=== PATIENT | male | born 1940 | race Hispanic/Latino ===

== ENCOUNTER 2017-04-22 03:00 | Outpatient (CLI) | payer MEDICARE, MEDICAID | END 2017-04-22 03:01 | disposition home or self-care (01) | LOC: BICRAD 03:00 | PROVIDERS: ATTEND Internal Medicine Infectious Disease | DX: L97.519 Non-pressure chronic ulcer of other part of right foot with unspecified severity (principal); L03.031 Cellulitis of right toe; M86.8X6 Other osteomyelitis, lower leg ==

== ENCOUNTER 2019-11-22 10:30 | Inpatient (IN) | payer MEDICARE, MEDICAID ==
[2019-11-22 12:11] VITALS: BMI 25.0
[2019-11-28] MEDS ORDERED: Midazolam HCl 2 mg/2 ml Vial ONE ×2 (06:34→06:36)
[2019-11-28] MEDS ORDERED: Fentanyl 100 MCG/2 ML VIAL ONE ×2 (06:34→06:36)
[2019-11-28] MEDS ORDERED: Lidocaine 1% (PF) 30 ML VIAL ONE (06:36)
[2019-11-28] MEDS ORDERED: Bupivacaine PF 0.5% 30 ML VIAL ONE (06:41)
[2019-11-28] MEDS ORDERED: EPINEPHrine 1 MG/ML AMP ONE (06:41)
[2019-11-28] MEDS ORDERED: Piperacillin/Tazobactam 3.375 GM VIAL ONE (07:02)
[2019-11-28] MEDS ORDERED: Sodium Chloride 0.9% 100 ML ONE (07:03)
[2019-11-28] MEDS ORDERED: Ondansetron HCl/PF 4 MG/2 ML Vial IVP PRN (08:44)
[2019-11-28] MEDS ORDERED: traMADol HCl 50 MG TAB PO PRN ×2 (08:49→10:51)
[2019-11-28] MEDS ORDERED: Ondansetron ODT 4 MG TAB PO PRN (08:49)
[2019-11-28] MEDS ORDERED: Levothyroxine 150 MCG TAB PO SCH (09:00)
[2019-11-28] MEDS ORDERED: hydrALAZINE 10 MG TAB PO SCH (09:00)
[2019-11-28] MEDS ORDERED: Acetaminophen 325 MG TAB PO PRN (09:01)
--- NOTE | 2019-11-28 09:32 | OP ---
DATE OF PROCEDURE: 11/28/2019 PREOPERATIVE DIAGNOSIS: Gangrene of the left foot. POSTOPERATIVE DIAGNOSIS: Gangrene of the left foot. PROCEDURE PERFORMED: Left below-knee amputation. ANESTHESIA: General endotracheal tube with a preoperative femoral block by Dr. Deepika Le. ESTIMATED BLOOD LOSS: 150. DESCRIPTION OF PROCEDURE: After consent was obtained, the patient was brought to the operating room, placed in supine position on the operating table. Appropriate central line and monitors were placed, and general endotracheal anesthesia was induced. The left leg was prepped and draped in usual sterile fashion. Skin incision was made for posterior flap type incision. Subcutaneous tissues were divided with electrocautery. Multiple small collaterals and venous branches were divided between ties. The periosteum was elevated off the tibia and fibula. Both the tibia was divided with a Gigli saw and tibial divided sharply with bone marcos. The posterior portion of the amputation was completed with the amputation knife. Multiple collaterals were tied in the posterior flap. After hemostasis had been obtained, the flap was copiously irrigated. Fascia was then reapproximated with 0 Vicryl suture. Subcutaneous tissue was reapproximated with 2-0 Vicryl and skin closed with clips. A fluff dressing was applied. The patient tolerated the procedure well, was awakened, transferred to recovery room in stable condition. Needle, sponge, and instrument counts were all reported as correct at the end of the procedure. Job ID: [id number]
[2019-11-28] MEDS ORDERED: hydrALAZINE 25 MG TAB PO SCH (11:00)
[2019-11-28] MEDS: Cyanocobalamin (Vitamin B-12) 1,000 MCG TAB PO SCH (11:03)
[2019-11-28] MEDS: Docusate 100 MG CAP PO PRN (11:03)
[2019-11-28] MEDS: Aspirin 325 mg Enteric Coated Tablet PO SCH (11:03)
[2019-11-28] MEDS: Doxycycline 100 MG CAP PO SCH (11:03)
[2019-11-28] MEDS: Pantoprazole 40 MG GRANULES PACKET PO SCH (11:04)
[2019-11-28] MEDS: Piperacillin/Tazobactam 3.375 GM in Sodium Chloride 0.9% 100 ML IVPB SCH ×2 (11:06→18:12)
[2019-11-28] MEDS ORDERED: PROPOFOL 200 MG/20 ML VIAL ONE (12:48)
[2019-11-28] MEDS ORDERED: PHENYLEPHRINE-NS 100 MCG/ML 10 ML SYRINGE ONE (12:48)
[2019-11-28] MEDS ORDERED: Bupivacaine HCl 0.5%/Epinephrine 1:200,000/PF 30 ml Vial ONE (12:48)
[2019-11-28] MEDS ORDERED: Fentanyl 100 MCG/2 ML VIAL SLOW IVP PRN (13:44)
[2019-11-28] MEDS: Atorvastatin Calcium 20 MG TAB PO SCH (21:22)
[2019-11-28] MEDS: hydrALAZINE 25 MG TAB PO SCH (21:24)
[2019-11-29] MEDS: Piperacillin/Tazobactam 3.375 GM in Sodium Chloride 0.9% 100 ML IVPB SCH ×2 (00:50→06:15)
[2019-11-29] MEDS: Levothyroxine 150 MCG TAB PO SCH (06:17)
[2019-11-29] MEDS: Aspirin 325 mg Enteric Coated Tablet PO SCH (10:26)
[2019-11-29] MEDS: Pantoprazole 40 MG GRANULES PACKET PO SCH (10:26)
[2019-11-29] MEDS: Cyanocobalamin (Vitamin B-12) 1,000 MCG TAB PO SCH (10:26)
[2019-11-29] MEDS: Docusate 100 MG CAP PO PRN (10:26)
[2019-11-29] MEDS: Doxycycline 100 MG CAP PO SCH (10:26)
[2019-11-29] MEDS: hydrALAZINE 25 MG TAB PO SCH ×2 (12:33→20:59)
[2019-11-29 12:55] LABS: HBSAg Index 0.26 S/CO (0-0.99); Hep B Surf Ag Non-Reactive S/CO (NonReactive)
[2019-11-29] MEDS ORDERED: Heparin 10,000 UNITS/ 10 ML VIAL ONE (13:02)
[2019-11-29] MEDS: Atorvastatin Calcium 20 MG TAB PO SCH (20:59)
[2019-11-29] MEDS: traMADol HCl 50 MG TAB PO PRN (21:04)
[2019-11-29] MEDS ORDERED: HYDROcodone/Acetaminophen 10/325 mg Tablet PO SCH (23:15)
[2019-11-30] MEDS: traMADol HCl 50 MG TAB PO PRN ×3 (02:54→19:34)
[2019-11-30] MEDS: Acetaminophen 325 MG TAB PO PRN ×3 (02:54→19:34)
[2019-11-30] MEDS: Levothyroxine 150 MCG TAB PO SCH (05:53)
[2019-11-30] MEDS ORDERED: HYDROcodone/Acetaminophen 10/325 mg Tablet PO PRN (08:29)
[2019-11-30] MEDS: Doxycycline 100 MG CAP PO SCH (09:04)
[2019-11-30] MEDS: Pantoprazole 40 MG GRANULES PACKET PO SCH (09:05)
[2019-11-30] MEDS: Aspirin 325 mg Enteric Coated Tablet PO SCH (09:06)
[2019-11-30] MEDS: Cyanocobalamin (Vitamin B-12) 1,000 MCG TAB PO SCH (09:06)
[2019-11-30] MEDS: hydrALAZINE 25 MG TAB PO SCH ×2 (09:06→20:53)
[2019-11-30] MEDS: Docusate 100 MG CAP PO PRN (09:09)
[2019-11-30 10:02] LABS: #Eosinphils 0.3 thou/uL (0.0-0.7); #Monocytes 0.8 thou/uL (0.11-0.59); %Basophils 0.7 % (0.0-1.0); %Eosinophils 4.5 % (0.0-10.0); %Lymphocytes 13.5 % (21.0-51.0); %Neutrophils 70.4 % (42.0-75.0); Hemoglobin 9.5 g/dL (14.0-18.0); Mean Corpuscular HGB CONC 29.4 g/dL (32.0-36.0); Mean Corpuscular Hemoglobin 27.8 pg (27.0-31.0); Mean Corpuscular Volume 94.6 fL (78.0-98.0); Mean Platelet Volume 8.6 fL (7.4-10.4); Platelet Count 210 thou/uL (130-400); RBC Distribution Width 17.7 % (11.5-14.5); White Blood Cell (WBC) Count 7.1 thou/uL (4.8-10.8)
[2019-11-30 10:08] LABS: Anion Gap 17 mmol/L (10-20); BUN (Urea Nitrogen) 25 mg/dL (8.4-25.7); Calc. Creatinine Clearance 19 mL/min (70-130); Calcium 8.7 mg/dL (7.8-10.44); Carbon Dioxide 22 mmol/L (23-31); Chloride 100 mmol/L (98-107); Estimated GFR-MDRD 21; Glucose 88 mg/dL (83-110); Sodium 134 mmol/L (136-145)
--- NOTE | 2019-11-30 10:08 | PRG ---
DATE OF SERVICE: 11/30/2019 SUBJECTIVE: Mr. Sheriff is 79-year-old male, who was admitted due to the persistent left foot gangrene. He underwent a left BKA. He is doing well. We are following him up for management of his ESRD. He did receive dialysis yesterday without any difficulty. OBJECTIVE: VITAL SIGNS: Blood pressure is 157/62, heart rate 91, respiratory rate 18, temperature 98, O2 saturation 96%. GENERAL: Noted to be awake, comfortable, not in overt distress. SKIN: Adequate turgor. HEENT: He has a pinkish conjunctivae. Anicteric sclerae. NECK: No neck mass. No carotid bruits. No JVD. CHEST: No deformities. LUNGS: Clear breath sounds. No wheezing. No crackles. HEART: Normal sinus rhythm. No murmurs. No gallops. No rubs. ABDOMEN: Globular, soft, nontender. No masses. EXTREMITIES: Left upper extremity swelling noted, status post left BKA. MEDICATIONS: Medications of November 30, 2019, was reviewed. LABORATORY DATA: Laboratories of November 30, 2019, pending. ASSESSMENT AND PLAN: 1. End-stage renal disease, stable. We will continue current hemodialysis regimen of Thursday, , and Thursday. Fluid removal only as tolerated. 2. Hyperphosphatemia-start Renvela 800 mg one tablet t.i.d. with the patient. His serum phosphorus has been ordered to be rechecked tomorrow. 3. Peripheral vascular disease/left foot gangrene-the patient is doing well. He is status post left BKA. Awaiting rehab placement. 4. Recheck basic met, CBC, intact PTH, serum phosphorus in a.m. Job ID: [id number]
[2019-11-30 10:23] LABS: Hypochromia SLIGHT = 6-15 cells (100X) (0-5/hpf); MDiff Complete? YES; Platelet Morphology Comment Appears Adequate; Polychromasia SLIGHT = 2-3 cells (100X) (0-2/hpf)
--- NOTE | 2019-11-30 11:15 | CON ---
DATE OF CONSULTATION: HISTORY OF PRESENT ILLNESS: Mr. Sheriff is a 79-year-old male with ESRD and was admitted due to nonhealing left foot ulcers. He was noted to have left foot gangrene and has undergone a left BKA. He tolerated said procedure. We are being consulted for management of his ESRD and as well assist for maintenance hemodialysis. He is currently undergoing hemodialysis without any heparin. REVIEW OF SYSTEMS: No chest pain. No shortness of breath. No fever or chills. Positive for nonhealing left foot wound. No syncopal episode. No dysuria. No urinary frequency. Appetite and energy level are fair. No headache. No diplopia. No sore throat. No productive cough. No fever or chills. HOSPITAL MEDICATIONS: Included the following, 1. Aspirin 325 mg daily. 2. Atorvastatin 20 mg at bedtime. 3. Vitamin B12 of 1000 mcg daily. 4. Vibramycin 100 mg p.o. daily. 5. Fentanyl 25 mcg IV q.2 p.r.n. 6. Hydralazine 100 mg p.o. b.i.d. 7. Levothyroxine 150 mcg daily. 8. Protonix 40 mg daily. 9. Seroquel 50 mg at bedtime. 10. Tramadol 50 mg q.6 p.r.n. PAST MEDICAL HISTORY: 1. ESRD. 2. Hypothyroidism. 3. Hypertension. 4. Peripheral vascular disease. 5. GERD. 6. Hyperlipidemia. 7. Type 2 diabetes mellitus. 8. Status post CHF. 9. BPH. 10. Coronary artery disease. PAST SURGICAL HISTORY: Status post cardiac cath, status post CABG, status post cuffed hemodialysis catheter placement, status post AV fistula placement, recently status post left BKA, status post PD catheter placement with subsequent removal, status post circumcision, status post thoracentesis of right pleural effusion. SOCIAL HISTORY: The patient is , 13 children and lives in [place]. He is a retired hardware employee. Education, high school-from [place], Status post multiple blood transfusion. No IV drug abuse. Smoked for 30 years, roughly one pack a day, but currently not smoking. No alcohol. No IV drug abuse. FAMILY HISTORY: Positive family history of ESRD. ALLERGIES: NONE. TRAUMA: None. IMMUNIZATIONS: Up-to-date. HOSPITALIZATIONS: Please see past medical history. PHYSICAL EXAMINATION: VITAL SIGNS: Blood pressure is noted at 167/73 and heart rate 70. GENERAL: Awake, alert, comfortable, not in distress. SKIN: Adequate turgor. HEENT: He has pinkish conjunctivae. Anicteric sclerae. NECK: No neck mass. No carotid bruits. No JVD. CHEST: No deformities. LUNGS: Clear breath sounds. No wheezing. No crackles. HEART: Normal sinus rhythm. No murmurs, gallops, or rubs. ABDOMEN: Globular, soft, nontender. No masses. EXTREMITIES: Status post left BKA. NEUROLOGIC: Awake and oriented to 3 spheres. Moving all extremities. No tremors. No asterixis. No ataxia. LABORATORY DATA: Laboratories of November 23, 2019; white count 13.9, hemoglobin 11.1. Sodium 135, potassium 5.1, chloride 98, carbon dioxide 26, BUN 28, creatinine 3.34, glucose 147, and calcium 9.0. ASSESSMENT AND PLAN: 1. End-stage renal disease, stable. We will continue current Thursday, , and Thursday hemodialysis regimen. Fluid removal only as tolerated. Currently, we are not using heparin due to the current surgery. 2. Peripheral vascular disease/left foot gangrene-status post left BKA, doing well. Tolerated said procedure. Overall, prognosis remains guarded. Recheck basic metabolic and CBC in the a.m. Job ID: [id number]
[2019-11-30] MEDS: Sevelamer Carbonate 800 MG TAB PO SCH ×2 (12:16→17:29)
[2019-11-30] MEDS ORDERED: Amlodipine 5 MG TAB PO SCH (17:15)
[2019-11-30] MEDS: Atorvastatin Calcium 20 MG TAB PO SCH (20:53)
[2019-12-01] MEDS: Levothyroxine 150 MCG TAB PO SCH (05:15)
[2019-12-01 05:40] LABS: #Basophils 0.1 thou/uL (0.0-0.2); #Eosinphils 0.3 thou/uL (0.0-0.7); #Lymphocytes 1.5 thou/uL (1.20-3.40); #Monocytes 0.6 thou/uL (0.11-0.59); #Neutrophils 4.1 thou/uL (1.40-6.50); %Basophils 0.8 % (0.0-1.0); %Eosinophils 5.2 % (0.0-10.0); %Lymphocytes 22.7 % (21.0-51.0); %Monocytes 8.7 % (0.0-10.0); %Neutrophils 62.6 % (42.0-75.0); Hemoglobin 9.6 g/dL (14.0-18.0); Mean Corpuscular HGB CONC 29.8 g/dL (32.0-36.0); Mean Corpuscular Hemoglobin 28.3 pg (27.0-31.0); Platelet Count 253 thou/uL (130-400); RBC Distribution Width 17.7 % (11.5-14.5); Red Blood Cell (RBC) Count 3.38 mill/uL (4.70-6.10); White Blood Cell (WBC) Count 6.6 thou/uL (4.8-10.8)
[2019-12-01 06:03] LABS: Anion Gap 15 mmol/L (10-20); BUN (Urea Nitrogen) 35 mg/dL (8.4-25.7); Calc. Creatinine Clearance 16 mL/min (70-130); Calcium 8.9 mg/dL (7.8-10.44); Carbon Dioxide 27 mmol/L (23-31); Chloride 97 mmol/L (98-107); Estimated GFR-MDRD 17; Glucose 70 mg/dL (83-110); Phosphorus 5.5 mg/dL (2.3-4.7); Potassium 5.2 mmol/L (3.5-5.1); Sodium 134 mmol/L (136-145)
[2019-12-01] MEDS: traMADol HCl 50 MG TAB PO PRN ×2 (07:32→15:59)
[2019-12-01] MEDS: Acetaminophen 325 MG TAB PO PRN ×2 (07:32→15:59)
[2019-12-01] MEDS ORDERED: Epoetin (ESRD) 20,000 UNITS/ML SC SCH (08:30)
[2019-12-01] MEDS ORDERED: Heparin 10,000 UNITS/ 10 ML VIAL ONE (08:38)
--- NOTE | 2019-12-01 08:53 | PRG ---
DATE OF SERVICE: 12/01/2019 SERVICE: Renal Medicine. SUBJECTIVE: Mr. Sheriff is a 79-year-old male with ESRD, was admitted for left foot gangrene. He underwent a left BKA. He is doing well since surgery. He is currently undergoing hemodialysis and we are following him up for management of his ESRD. The patient voices no new complaints today. OBJECTIVE: VITAL SIGNS: Blood pressure is 138/63, heart rate 86, respiratory rate 16, and O2 saturation 94%. GENERAL: The patient is awake, alert, comfortable, not in distress. SKIN: Adequate turgor. HEENT: He has pinkish conjunctivae. Anicteric sclerae. NECK: No neck mass. No carotid bruits. No JVD. CHEST: No deformities. LUNGS: Clear breath sounds. HEART: Normal sinus rhythm. No murmurs, gallops, or rubs. ABDOMEN: Globular, soft, nontender. No masses. EXTREMITIES: Status post left BKA. MEDICATIONS: Medications of December 01, 2019, were reviewed. LABORATORY DATA: Laboratories of December 01, 2019; white count 6.6, hemoglobin 9.6. Sodium 134, potassium 5.2, chloride 97, carbon dioxide 27, BUN 35, creatinine 3.57, glucose 70, calcium 8.9, phosphorus 5.5. PTH is 282. ASSESSMENT AND PLAN: 1. End-stage renal disease, stable, tolerating current hemodialysis regimen. Fluid removal only as tolerated. No heparin use due to the recent surgery. 2. Status post left foot gangrene-the patient underwent the left BKA, is doing well. He will be transferred to [facility] for further physical therapy. 3. Anemia. We will start weekly Epogen with this patient. 4. Hyperphosphatemia, currently on Renvela. 5. Mildly elevated PTH. We will simply observe. Job ID: [id number]
[2019-12-01] MEDS: Sevelamer Carbonate 800 MG TAB PO SCH ×3 (10:17→16:47)
[2019-12-01] MEDS ORDERED: EPOETIN ALFA-EPBX (ESRD) 4,000 UNIT/ML VIAL SC SCH (12:00)
--- NOTE | 2019-12-01 12:33 | DIS ---
DATE OF ADMISSION: 11/28/2019 DATE OF DISCHARGE: 12/01/2019 DIAGNOSIS: Gangrene of the left foot. PROCEDURE PERFORMED: Left below-knee amputation. DESCRIPTION OF HOSPITAL STAY: Mr. Sheriff was admitted as an outpatient for left below-knee amputation. He has done well and being transferred to rehab. DISCHARGE MEDICATIONS: Unchanged. Job ID: [id number]
[2019-12-01] MEDS: Doxycycline 100 MG CAP PO SCH (13:00)
[2019-12-01] MEDS: Cyanocobalamin (Vitamin B-12) 1,000 MCG TAB PO SCH (13:00)
[2019-12-01] MEDS: hydrALAZINE 25 MG TAB PO SCH (13:01)
[2019-12-01] MEDS: Aspirin 325 mg Enteric Coated Tablet PO SCH (13:01)
[2019-12-01] MEDS: Docusate 100 MG CAP PO PRN (13:01)
[2019-12-01] MEDS: Amlodipine 5 MG TAB PO SCH ×2 (13:02→15:09)
[2019-12-01 15:45] VITALS: TEMP 98.1
[2019-12-01 16:20] VITALS: BP 160/62
== END 2019-12-01 18:00 | DRG 239 ==
LOC: SURG A 11-28 06:14 → SURG B 11-28 09:29
PROVIDERS: ADMIT Thoracic Surgery (Cardiothoracic Vascular Surgery); ATTEND Thoracic Surgery (Cardiothoracic Vascular Surgery)
PROC: 0Y6J0Z2 Detachment at Left Lower Leg, Mid, Open Approach (ICD-10-PCS; principal; 2019-11-28)
DX: E11.52 Type 2 diabetes mellitus with diabetic peripheral angiopathy with gangrene (principal); N18.6 End stage renal disease; I96 Gangrene, not elsewhere classified; I13.2 Hypertensive heart and chronic kidney disease with heart failure and with stage 5 chronic kidney disease, or end stage renal disease; E03.9 Hypothyroidism, unspecified; K21.9 Gastro-esophageal reflux disease without esophagitis; I50.9 Heart failure, unspecified; N40.0 Benign prostatic hyperplasia without lower urinary tract symptoms; I25.10 Atherosclerotic heart disease of native coronary artery without angina pectoris; E78.5 Hyperlipidemia, unspecified; E11.621 Type 2 diabetes mellitus with foot ulcer; L97.529 Non-pressure chronic ulcer of other part of left foot with unspecified severity; E83.39 Other disorders of phosphorus metabolism; Z79.82 Long term (current) use of aspirin; Z79.899 Other long term (current) drug therapy; Z95.1 Presence of aortocoronary bypass graft; Z99.2 Dependence on renal dialysis; Z87.891 Personal history of nicotine dependence
CPT/HCPCS: 36415; 36600; 80048; 83970; 84100; 85025; 87340; 88307; 90935; G0257; J0171; J0670; J1644; J2001; J2250; J2543; J2704; J3010; J3490; Q5105; S0020

== ENCOUNTER 2019-11-23 05:46 | Outpatient (CLI) | payer MEDICARE, MEDICAID, OTHER ==
[2019-11-23 14:34] LABS: Hemoglobin 11.1 g/dL (14.0-18.0); Mean Corpuscular HGB CONC 29.8 g/dL (32.0-36.0); Mean Corpuscular Hemoglobin 28.5 pg (27.0-31.0); Mean Corpuscular Volume 95.6 fL (78.0-98.0); Mean Platelet Volume 8.6 fL (7.4-10.4); Platelet Count 257 thou/uL (130-400); RBC Distribution Width 16.6 % (11.5-14.5); White Blood Cell (WBC) Count 13.9 thou/uL (4.8-10.8)
[2019-11-23 15:16] LABS: Anion Gap 16 mmol/L (10-20); BUN (Urea Nitrogen) 28 mg/dL (8.4-25.7); Calc. Creatinine Clearance 0 mL/min (70-130); Carbon Dioxide 26 mmol/L (23-31); Chloride 98 mmol/L (98-107); Estimated GFR-MDRD 18; Glucose 147 mg/dL (83-110); Potassium 5.1 mmol/L (3.5-5.1); Sodium 135 mmol/L (136-145)
[2019-11-24 13:25] LABS: SARS-CoV-2 MS2 Positive; SARS-CoV-2 N Gene Negative; SARS-CoV-2 S Gene Negative; SARS-CoV-2 orf1ab Negative
== END 2019-11-23 05:47 | disposition home or self-care (01) ==
LOC: LABBT 05:46
PROVIDERS: ATTEND Thoracic Surgery (Cardiothoracic Vascular Surgery)
DX: Z01.818 Encounter for other preprocedural examination (principal); Z11.59 Encounter for screening for other viral diseases; I70.245 Atherosclerosis of native arteries of left leg with ulceration of other part of foot
CPT/HCPCS: 80048; 85027; 93005; U0003; 87635; 93010